=== PATIENT | male | born 1995 | race Caucasian/White ===

== ENCOUNTER 2022-09-17 11:20 | Emergency (ER) | payer BC, SELFPAY ==
[2022-09-17 11:30] VITALS: BP 136/91; PULSE 73; RESP 16; TEMP 36.7; O2SAT 100
--- NOTE | 2022-09-17 11:54 | ED.ABDPAIN ---
HPI - Abdominal Pain General Chief Complaint: Abdominal Pain Stated Complaint: abdominal pain, constipation Source: patient Mode of arrival: ambulatory Limitations: no limitations History of Present Illness HPI narrative: Patient presents for evaluation of left lower quadrant pain for the last 2 days. Pain has been intermittent, responds well to application of heating pad or or bathing and warm water. He has experienced some nausea without vomiting. No fever or chills. Normal bowel pattern is a bowel movement following any meal intake. He has been doing intermittent fasting for several weeks. He has had decrease in bowel movements since time of symptom onset. He is only passing small michelle of stool. No history of abdominal surgeries. He tried taking MiraLax without considerable improvement in his symptoms or after. He does not provide me with a descriptive quality are numerical rating the pain. Pain is now radiating into left lower back. Related Data Allergies Allergy/AdvReac Type Severity Reaction Status Date / Time sulfamethoxazole Allergy Verified 12/18/12 23:25 trimethoprim Allergy Verified 12/18/12 23:25 Review of Systems Review of Systems: CONSTITUTIONAL: Denies fever, chills, or sweats. EYES: Denies visual changes, redness, or discharge. ENT: Denies rhinorrhea, congestion, sore throat, or otalgia. CARDIOVASCULAR: Denies chest pain, palpitations, or edema. RESPIRATORY: Denies cough or dyspnea. GASTROINTESTINAL: reports left lower quadrant pain, decreased bowel movements, and nausea. Denies vomiting. GENITOURINARY: Denies dysuria or hematuria. SKIN: Denies rash or itching. MUSCULOSKELETAL: Denies back pain, joint pain, or myalgia. NEUROLOGIC: Denies headache, numbness, dizziness, or weakness. PSYCHIATRIC: Denies anxiety or depression. [facility] Past Medical History Medical History No pertinent past medical history Surgical History Surgical History No pertinent past surgical history Family History Family History Mother Family history non-contributory Social History Social History Smoking status: Never smoker Substance use: never Living arrangements: with family Gender identity (if verbalized by the patient): Male Sexual Orientation (if Verbalized by the Patient): Straight or Heterosexual Spiritual care concerns: No Exam Narrative: GENERAL: Well-appearing, well-nourished, and in no acute distress. HEAD: Normocephalic, atraumatic. EYES: PERRLA and EOMI. ENT: Nares clear, no rhinorrhea or epistaxis. Mucous membranes moist. Oropharynx without tonsillar hypertrophy exudate or other lesions. Bilateral TMs pearly moreno nonbulging NECK: Supple. No adenopathy or masses. No carotid bruits or JVD CHEST: Clear to auscultation. No respiratory distress. No wheezes rales or rhonchi HEART: Regular rate and rhythm. No murmur heard. Normal peripheral pulses. ABDOMEN: Soft, nontender, nondistended, normal active bowel sounds. EXTREMITIES: Normal range of motion. No edema. SKIN: Warm, dry, no rash. NEURO: No focal deficits. Alert and oriented x3. PSYCH: Normal mood and affect. Course Course Emergency Course: This is a 27-year-old male who presented for evaluation of decreased bowel movements with left lower quadrant pain. I am concerned his diverticulitis. Advised to go to the emergency department for further evaluation and treatment. He declined. May also have bowel obstruction. I did advise him of potential risks and he agreed to assume responsibility. I did encourage him to have abdominal x-rays performed here, which he declined. Informed him that I was sore provide him with prescriptions for Flagyl and Cipro for suspected diverticulitis. He should follo
== END 2022-09-17 11:58 | disposition left against medical advice (07) ==
PROVIDERS: Emergency Provider Nurse Practitioner
DX: R10.32 Left lower quadrant pain (principal); K59.00 Constipation, unspecified
CPT/HCPCS: 99203; G0463

== ENCOUNTER 2022-09-17 13:18 | Emergency (ER) | payer BC, SELFPAY ==
--- NOTE | ~2022-09-17 | CT_ITS ---
EXAMINATION: CT abdomen pelvis w con DATE: 09/17/2022 16:43 INDICATION: LLQ abdominal pain TECHNIQUE: Computed tomography (CT) of the abdomen and pelvis was performed with 100 mL Omnipaque-350 intravenous contrast. Automated exposure control and iterative reconstruction technique were employe d. The dose-length product was 1021.94 mGy-cm. COMPARISON: None. FINDINGS: Lower thorax: Unremarkable Liver: Normal. Biliary/Gallbladder: Gallbladder is normal. No bile duct dilation. Pancreas: No mass or duct dilation. Spleen: Normal. Adrenals:No mass. Kidneys: Simple right midpole cyst. Right lower pole hypodensities that are too small to characterize but also most likely represent cysts. Delayed left nephrogram with mild left hydronephrosis and mild left perinephric stranding. GI tract: Mild distal esophageal and antral wall edema. No small or large bowel dilation. Normal appe ndix. Mesentery/Peritoneum: No ascites, mass, or free air. Retroperitoneum: No mass. Pelvis: 2 mm calcification in the distal left ureter at the entrance of the left UVJ. Decompressed ur inary bladder.. Soft Tissues: Soft tissues and body wall unremarkable. Bones: No acute osseous finding. IMPRESSION: 2 mm distal left ureteral calculus causing mild-moderate obstructive uropathy. Reviewed, dictated and finalized at location K. BED KNITTER
--- NOTE | ~2022-09-17 | XR_ITS ---
EXAM: XR abdomen/kub 1V DATE: 09/17/2022 18:12 HISTORY: left sided stone . COMPARISON: CT abdomen and pelvis same date. FINDINGS: Clear lung bases. Normal bowel gas pattern. No organomegaly. Delayed left nephrogram. 2 mm calcification in the left pelvis, nearly obscured by contrast in the bladder likely representing the distal left ureteral stone seen in the prior CT. Regional bones and soft tissues normal for age. IMPRESSION: 2 mm distal left ureteral stone. Delayed left nephrogram. Reviewed, dictated and finalized at location K. ND BLANCHER OPERATOR
[2022-09-17 13:57] VITALS: BP 132/98; PULSE 72; RESP 18; TEMP 36.8; O2SAT 99
[2022-09-17 14:33] LABS: Basophils Percent Auto 0.3 % (0.2-1.2); Eosinophils Absolute Auto 0.2 K/mm3 (0-0.3); Eosinophils Percent Auto 1.6 % (0-4.4); Hematocrit 46.1 % (42.0-52.0); Hemoglobin 15.3 g/dL (14.0-18.0); Immature Granulocyte Absolute 0.04 K/mm3 (0.00-0.031); Immature Granulocyte Percent A 0.4 % (0-0.5); Lymphocytes Absolute Auto 2.03 K/mm3 (0.9-3.2); Lymphocytes Percent Auto 20.5 % (18.3-44.2); Mean Corpuscular HGB Conc 33.2 g/dl (32-36); Mean Corpuscular Hemoglobin 29.7 pg (26-34); Mean Corpuscular Volume 89.5 fl (80-100); Mean Platelet Volume 10.1 fl (7.4-10.4); Monocytes Absolute Auto 0.7 K/mm3 (0.1-0.6); Monocytes Percent Auto 6.9 % (2.6-8.5); Neutrophils Percent Auto 70.3 % (45.5-73.1); Platelet Count Result 225 k/mm3 (150-375); Red Blood Count 5.15 M/mm3 (4.6-6.20); Red Cell Distribution Width 11.9 % (11.5-14.5); White Blood Count 9.9 K/mm3 (4.5-10.0)
[2022-09-17 14:42] LABS: Alanine Aminotransferase 52 U/L (6-50); Albumin Level 4.5 g/dL (3.5-5.1); Alkaline Phosphatase 64 U/L (38-126); Anion Gap 8 mmol/L (8-16); Aspartate Amino Transferase 33 U/L (17-59); Bilirubin,Total 0.7 mg/dL (0.2-1.3); Blood Urea Nitrogen 14 mg/dL (9-20); Calcium 9.6 mg/dL (8.4-10.2); Carbon Dioxide 28 mmol/L (22-30); Chloride 107 mmol/L (98-107); Estimated CRCL calculation 88 ml/min; Estimated Glomerular Filt Rate 57; Glucose 95 mg/dL (65-110); Lipase 104 U/L (23-300); Potassium 4.1 mmol/L (3.4-5.0); Sodium 143 mmol/L (137-145)
[2022-09-17 16:26] LABS: Appearance Urine Clear (Clear); Bilirubin Urine Negative (Negative); Blood Urine 3+ (Negative); Color Urine Yellow (Yellow); Glucose Urine UA Negative (Negative); Ketones Urine Negative (Negative); Leukocyte Esterase Ur Negative LEU/UL (Negative); Nitrate Urine Negative (Negative); Protein Urine Trace mg/dL (Negative); Specific Grav Ur >= 1.030 (1.001-1.035); Urobilinogen Urine 0.2 mg/dL (<2.0); pH Urine 5.5 (5.0-9.0)
[2022-09-17] MEDS: MORPHINE SULFATE (*CRX) 4 MG/ML INJ IV PUSH (16:26)
[2022-09-17 16:30] LABS: Calcium Oxalate Crystals Urine Present /hpf; Mucus Urine Rare /lpf; RBC Urine >75 /hpf (0-2); WBC Urine 0-3 /hpf
[2022-09-17 16:35] LABS: Add Urine Microscopic? YES
[2022-09-17] MEDS: ONDANSETRON INJ 4 MG/2 ML VIAL IV PUSH (17:05)
[2022-09-17] MEDS: SODIUM CHLORIDE 0.9% IV 1,000 ML 999 ML IV CONT (17:05)
[2022-09-17] MEDS: KETOROLAC 30 MG/ML VIAL (*BKC) IV PUSH (17:45)
--- NOTE | 2022-09-17 17:49 | ED.ABDPAIN ---
HPI - Abdominal Pain General Chief Complaint: Abdominal Pain Stated Complaint: something is ruptured inside me Time Seen by Provider: 09/17/22 15:46 History of Present Illness HPI narrative: Patient is a 27-year-old male who presents to the ER with reports of left-sided abdominal pain ongoing for 3 days. Radiates into the back. Has pressure and makes him feel like he needs to go to the bathroom. Only feels improved when he bears down like he needs it.. Has some urinary frequency. No dysuria or blood in his urine. Denies fevers or chills or sweats. Family history of kidney stones. Related Data Allergies Allergy/AdvReac Type Severity Reaction Status Date / Time sulfamethoxazole Allergy Verified 12/18/12 23:25 trimethoprim Allergy Verified 12/18/12 23:25 Review of Systems Review of Systems: All systems reviewed & are unremarkable except as noted in HPI and below Constitutional: Constitutional: Denies chills and Denies fever(s) ENT: Denies nasal congestion and Denies sore throat Cardiovascular: Cardiovascular: Denies chest pain, Denies radiating jaw, neck or arm pain and Denies slow heart rate Gastrointestinal: Gastrointestinal: Reports abdominal pain, Reports nausea and Reports vomiting PMFSH Past Medical History Medical History (Updated 09/17/22 @ 18:15 by Cristi Meeks MD) No pertinent past medical history Surgical History Surgical History No pertinent past surgical history Family History Family History Mother Family history non-contributory Social History Social History Smoking status: Never smoker Substance use: never Living arrangements: with family Gender identity (if verbalized by the patient): Male Sexual Orientation (if Verbalized by the Patient): Straight or Heterosexual Spiritual care concerns: No Exam Narrative: GENERAL: Well-appearing, well-nourished, and in no acute distress. HEAD: Normocephalic, atraumatic. ENT: Mucous membranes moist. CHEST: Clear to auscultation. No respiratory distress. HEART: Regular rate and rhythm. Normal peripheral pulses. ABDOMEN: Soft, nontender, nondistended. No CVA tenderness. EXTREMITIES: Normal range of motion. No edema. SKIN: Warm, dry, no rash. NEURO: Alert and oriented x3. PSYCH: Normal mood and affect. Course Course Emergency Course: Patient resting comfortably. Informed of results. Discussed despite stone size its slower moving. Discussed case with Dr. Holcomb with urology. He will follow-up the patient to make sure creatinine is normalizing and stone passes. Will place on [place] for pain, Zofran for nausea, and Flomax to help with passage/spasm. Patient verbalized understanding treatment plan. Vital Signs Vital signs: Vital Signs Temperature 98.3 F 09/17/22 13:57 Pulse Rate 72 09/17/22 13:57 Respiratory Rate 18 09/17/22 13:57 Blood Pressure 132/98 H 09/17/22 13:57 Pulse Oximetry 99 09/17/22 13:57 Oxygen Delivery Room Air 09/17/22 13:57 Temperature 98.3 F 09/17/22 13:57 Pulse Rate 72 09/17/22 13:57 Respiratory Rate 18 09/17/22 13:57 Blood Pressure 132/98 H 09/17/22 13:57 Pulse Oximetry 99 09/17/22 13:57 Oxygen Delivery Room Air 09/17/22 13:57 MDM - Abdominal Pain Lab Data 09/17/22 14:20 09/17/22 14:20 Labs: Lab Results 09/17/22 09/17/22 09/17/22 Range/Units 14:20 14:20 16:08 WBC 9.9 (4.5-10.0) K/mm3 RBC 5.15 (4.6-6.20) M/mm3 Hgb 15.3 (14.0-18.0) g/dL Hct 46.1 (42.0-52.0) % MCV 89.5 (80-100) fl MCH 29.7 (26-34) pg MCHC 33.2 (32-36) g/dl RDW 11.9 (11.5-14.5) % Plt Count 225 (150-375) k/mm3 MPV 10.1 (7.4-10.4) fl Immature Gran % (Auto) 0.4 (0-0.5) % Neut % (Auto) 70.3 (45.5-73.1) % Lymph % (
[2022-09-17 19:21] VITALS: PULSE 68; RESP 18; O2SAT 98
== END 2022-09-17 19:22 | disposition home or self-care (01) ==
PROVIDERS: Emergency Provider Emergency Medicine
DX: N13.9 Obstructive and reflux uropathy, unspecified (principal); N20.1 Calculus of ureter
CPT/HCPCS: 36415; 74018; 74177; 80053; 81001; 83690; 85025; 96361; 96374; 96375; 99284; J1885; J2270; J2405; J7030; Q9967

== ENCOUNTER → 2022-09-22 10:02 | Outpatient (CLI) | payer BC, SELFPAY ==
--- NOTE | ~2022-09-22 | XR_ITS ---
Supine and upright views of the abdomen Clinical history: Kidney stone COMPARISON: 09/17/2022 Findings: Bowel gas pattern is nonspecific. No evidence for obstruction or free air. Possible 2 mm di stal left ureteral stone is unchanged. Osseous structures are intact. Impression: Suspected 2 mm distal left ureteral stone, unchanged. Reviewed, dictated and finalized at [facility]. [place] FARMER Impression: Suspected 2 mm distal left ureteral stone, unchanged.
== END ==
PROVIDERS: PCP Urology; Visit Provider Urology
DX: N20.1 Calculus of ureter (principal)
CPT/HCPCS: 74018

== ENCOUNTER → 2022-09-26 08:07 | Outpatient (CLI) | payer BC, SELFPAY ==
--- NOTE | ~2022-09-26 | XR_ITS ---
EXAMINATION: XR abdomen/kub 1V INDICATION: Left-sided kidney stone TECHNIQUE: Supine views of the abdomen were obtained on 2 radiographs. COMPARISON: 09/22/2022 FINDINGS: The previously described suspected 2 mm left distal ureteral stone is not definitely identi fied. No urolithiasis is seen. The visualized lung bases are clear. The bowel gas pattern is normal. IMPRESSION: 1. No urolithiasis identified. Reviewed, dictated and finalized at location L. NOMY PROFESSOR
== END ==
PROVIDERS: PCP Urology; Visit Provider Urology
DX: N20.0 Calculus of kidney (principal)
CPT/HCPCS: 74018